=== PATIENT | female | born 2000 | race Caucasian/White ===

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

== ENCOUNTER 2023-02-02 21:56 | Emergency (ER) | payer OTHER ==
[2023-02-02 22:05] VITALS: RESP 18; TEMP 98
--- NOTE | 2023-02-02 23:08 | US ---
EXAM: US First Trimester , Transabdominal CLINICAL HISTORY: ITS.REASON US Reason: vaginal bleeding in TECHNIQUE: Real-time transabdominal obstetrical ultrasound of the maternal pelvis and a first trimester with image documentation. COMPARISON: No relevant prior studies available. FINDINGS: Gestation: Single intrauterine with a crown-rump length of 4. 62 cm yielding an estimated gestational age of 11 weeks 3 days. heart tones are identified measuring 165 bpm. Placenta/amniotic fluid: Cannot be adequately evaluated due to the early gestational age. Uterus/cervix: 4.1 x 4.1 x 2.9 cm fundal fibroid. Ovaries: Unremarkable. No mass. Free fluid: No free fluid. IMPRESSION: Single viable intrauterine gestation.
[2023-02-02 23:20] LABS: ALT 14 U/L (4-34); AST 22 U/L (14-36); African American GFR (CKD) >90 (>60 ml/min/1.73 sqM); Alkaline Phosphatase 78 U/L (38-126); Anion Gap 13 mmol/L; Blood Urea Nitrogen 6 mg/dL (7-17); Calcium 9.2 mg/dL (8.4-10.2); Carbon Dioxide 18 mmol/L (22-30); Chloride 105 mmol/L (98-107); Glucose 99 mg/dL (74-99); Non-African American GFR(CKD) >90 (>60 ml/min/1.73 sqM); Potassium 3.9 mmol/L (3.5-5.1); Sodium 136 mmol/L (137-145); Total Bilirubin 0.3 mg/dL (0.2-1.3); Total Protein 7.4 g/dL (6.3-8.2)
[2023-02-02 23:38] LABS: Amorphous Sediment,Urine Occasional /hpf; Appearance,Urine Clear (Clear); Bilirubin,Urine Negative (Negative); Blood,Urine Small (Negative); Glucose,Urine (UA) Negative (Negative); Hyaline Casts,Urine 57 /lpf (0-2); Ketones,Urine Negative (Negative); Leukocyte Esterase,Urine Negative (Negative); Mucus,Urine Few /hpf; Nitrite,Urine Negative (Negative); Protein,Urine 2+ (Negative); RBC,Urine 83 /hpf (0-5); Specific Gravity,Urine 1.028 (1.001-1.035); Squamous Epithelial Cell,Urine <1 /hpf (0-4); Urobilinogen,Urine <2.0 mg/dL (<2.0); WBC,Urine 2 /hpf (0-5)
[2023-02-02 23:40] LABS: Color,Urine Yellow
[2023-02-02 23:53] LABS: Basophils % (A) 0 %; Eosinophils # (A) 0.2 k/uL (0-0.7); Eosinophils % (A) 2 %; HCT 38.6 % (34.0-46.0); HGB 12.4 gm/dL (11.4-16.0); Lymphocytes % (A) 24 %; MCH 27.5 pg (25.0-35.0); MCHC 32.2 g/dL (31.0-37.0); MCV 85.5 fL (80.0-100.0); Mean Platelet Volume 7.9; Monocytes # (A) 0.6 k/uL (0-1.0); Monocytes % (A) 5 %; Neutrophils # (A) 8.6 k/uL (1.3-7.7); Neutrophils % (A) 69 %; Platelet Count 266 k/uL (150-450); RBC 4.52 m/uL (3.80-5.40); RDW 15.6 % (11.5-15.5); WBC 12.6 k/uL (4.0-11.0)
--- NOTE | 2023-02-02 23:55 | ED ---
General Adult HPI - General Chief complaint: Vaginal Bleeding Stated complaint: 13 weeks Preg, Bleeding Time Seen by Provider: 02/02/23 22:07 Source: patient, RN notes reviewed Mode of arrival: ambulatory Limitations: no limitations - History of Present Illness Initial comments: 22-year-old female who is presents to the emergency department with a chief complaint of vaginal bleeding. Patient reports that she is currently approximately 13 weeks . She reports that she got upset with her weight or earlier this afternoon and came home and noticed that she had bright red vaginal bleeding. She quickly got in the shower. She reports resolution of bleeding and it is only light pink when she wipes. She denies dizziness, lightheaded, low back pain, vaginal cramping. Her TEST SPECIALIST is Dr. Lal. She has appointment with her in early February. - Related Data Home Medications Medication Instructions Recorded Confirmed Pnv No.95/Ferrous Fum/Folic AC 1 each PO DAILY 07/01/20 10/02/20 [ Multivitamin Tablet] Previous Rx's Medication Instructions Recorded Ibuprofen [Motrin] 600 mg PO Q6H #40 tab 10/04/20 oxyCODONE HCL [OxyIR] 5 mg PO Q4HR PRN #15 tab 10/04/20 Allergies Allergy/AdvReac Type Severity Reaction Status Date / Time No Known Allergies Allergy Verified 02/02/23 22:05 Review of Systems ROS Statement: Those systems with pertinent positive or pertinent negative responses have been documented in the HPI. ROS Other: All systems not noted in ROS Statement are negative. Past Medical History Past Medical History: No Reported History Additional Past Medical History / Comment(s): Obstetric history: This is her first and she's had care with me since the first trimester. Blood type is O-, antibodies negative, rubella immune, RPR nonreactive, is B-, H IV nonreactive. History of Any Multi-Drug Resistant Organisms: None Reported Past Surgical History: No Surgical Hx Reported Additional Past Surgical History / Comment(s): wisdom teeth Past Anesthesia/Blood Transfusion Reactions: No Reported Reaction Past Psychological History: Anxiety, Depression Smoking Status: Former smoker Past Alcohol Use History: None Reported Past Drug Use History: Marijuana - Past Family History Mother Family Medical History: No Reported History Additional Family Medical History / Comment(s): family history of DM and heart disease Father History Unknown: Yes General Exam - General Exam Comments Initial Comments: General: Alert, in no acute distress, she is obese Head: atraumatic normocephalic. Eyes PERRL, EOMI intact, mucous membranes moist Respiratory: Lungs clear to auscultation bilaterally Cardiovascular: Heart rate regular rate and rhythm Abdominal: Soft without guarding or rebound Extremities: Normal inspection with full range of motion and normal capillary refill Neuroogic: alert and oriented 3, CN II-XII intact, able to ambulate with steady gait Skin: warm dry and intact with normal color GY: external exam is without any rashes, lesions, erythema. Vaginal canal with scant LIGHT red blood Cervical os is visualized and is closed. There is no cervical motion tenderness for abnormal adnexal tenderness. Pelvic exam p erformed with help desk associate, DAVIS Nieves present. Limitations: no limitations Course Vital Signs 02/02/23 02/03/23 22:02 00:49 Temperature 98 F Pulse Rate 96 89 Respiratory 18 18 Rate Blood Pressure 145/81 135/75 O2 Sat by Pulse 98 98 Oximetry Medical Decision Making - Medical Decision Making Was pt. sent in by a medical professional or institution (, PA, OPERATIONS SCHEDULER, urgent care, hospital, or skilled nursing...) When possible be specific @ -[No] Did you speak to anyone other than the patient for history (EMS, parent, family, police, friend...)? What history was obtained from this source @ -[No] Did you review nursing and triage notes (agree or disagree)? Why? @ -[I reviewed and agree with nursing and triage notes] Were old charts reviewed (outside hosp., previous admission, EMS record, old EKG, old radiological studies, urgent care reports/EKG's, skilled nursing records)? Report findings @ -[No old charts were reviewed] Differential Diagnosis (chest pain, altered mental status, abdominal pain women, abdominal pain men, vaginal bleeding, weakness, fever, dyspnea, syncope, heada carie, dizziness, GI bleed, back pain, seizure, CVA, palpatations, mental health, musculoskeletal)? @ -[not applicable] EKG interpreted by me (3pts min.). @ -[As above] X-rays interpreted by me (1pt min.). @ -[None done] CT interpreted by me (1pt min.). @ -[None done] U/S interpreted by me (1pt. min.). @ -Pelvic ultrasound reveals IUP What testing was considered but not performed or refused? (CT, X-rays, U/S, labs)? Why? @ -[None] What meds were considered but not given or refused? Why? @ -[None] Did you discuss the management of the patient with other professionals (professionals i.e. Dr., PA, OPERATIONS SCHEDULER, lab, RT, psych nurse, protective services social worker, supervisor [employer], teacher, college service officer, case assistant)? Give summary @ -[No] Was smoking cessation discussed for >3mins.? @ -[No] Was critical care preformed (if so, how long)? @ -[No] Were there social determinants of health that impacted care today? How? (Homelessness, low income, unemployed, alcoholism, drug addiction, transportation, low edu. Level, literacy, decrease access to med. care, longterm, rehab)? @ -[No] Was there de-escalation of care discussed even if they declined (Discuss DNR or withdrawal of care, Hospice)? DNR status @ -[No] What co-morbidities impacted this encounter? (DM, HTN, Smoking, COPD, CAD, Cancer, CVA, ARF, Chemo, Hep., AIDS, mental health diagnosis, sleep apnea, morbid obesity)? @ -[None] Was patient admitted / discharged? Hospital course, mention meds given and route, prescriptions, significant lab abnormalities, going to OR and other pertinent info. @ -Discharged. This is a pleasant 22-year-old female who presents the emergency department with vaginal bleeding and . Patient had thorough history and physical exam performed. exam reveals scant, light red blood. Cervical os is closed. No adnexal tenderness. Patient had pelvic ultrasound which revealed single IUP. Patient was provided program. Encouraged to follow up with Dr. Lal in 1-2 days. Return precautions were discussed at length. Case discussed with Dr. Jaspal LOWE who agrees with plan of care Undiagnosed new problem with uncertain prognosis? @ -[No] Drug Therapy requiring intensive monitoring for toxicity (Heparin, Nitro, Insulin, Cardizem)? @ -[No] Were any procedures done? @ -[No] Diagnosis/symptom? @ -Vaginal Bleeding in Acute, or Chronic, or Acute on Chronic? @ -Acute Uncomplicated (without systemic symptoms) or Complicated (systemic symptoms)? @ -Uncomplicated Side effects of treatment? @ -[No] Exacerbation, Progression, or Severe Exacerbation? @ -[No] Poses a threat to life or bodily function? How? (Chest pain, [place], [place], pneumonia, PE, COPD, DKA, ARF, appy, cholecystitis, CVA, Diverticulitis, Homicidal, Suicidal, threat to staff... and all critical care pts) @ -Low likelihood - Lab Data Result diagrams: 02/02/23 22:50 02/02/23 22:50 Lab Results 02/02/23 02/02/23 02/02/23 Range/Units 22:50 22:50 22:50 WBC 12.6 H (4.0-11.0) k/uL RBC 4.52 (3.80-5.40) m/uL Hgb 12.4 (11.4-16.0) gm/dL Hct 38.6 (34.0-46.0) % MCV 85.5 (80.0-100.0) fL MCH 27.5 (25.0-35.0) pg MCHC 32.2 (31.0-37.0) g/dL RDW 15.6 H (11.5-15.5) % Plt Count 266 (150-450) k/uL MPV 7.9 Neutrophils % 69 % Lymphocytes % 24 % Monocytes % 5 % Eosinophils % 2 % Basophils % 0 % Neutrophils # 8.6 H (1.3-7.7) k/uL Lymphocytes # 3.0 (1.0-4.8) k/uL Monocytes # 0.6 (0-1.0) k/uL Eosinophils # 0.2 (0-0.7) k/uL Basophils # 0.0 (0-0.2) k/uL Sodium 136 L (137-145) mmol/L Potassium 3.9 (3.5-5.1) mmol/L Chloride 105 (98-107) mmol/L Carbon Dioxide 18 L (22-30) mmol/L Anion Gap 13 mmol/L BUN 6 L (7-17) mg/dL Creatinine 0.52 (0.52-1.04) mg/dL Est GFR (CKD-EPI)AfAm >90 (>60 ml/min/1.73 sqM) Est GFR (CKD-EPI)NonAf >90 (>60 ml/min/1.73 sqM) Glucose 99 (74-99) mg/dL Calcium 9.2 (8.4-10.2) mg/dL Total Bilirubin 0.3 (0.2-1.3) mg/dL AST 22 (14-36) U/L ALT 14 (4-34) U/L Alkaline Phosphatase 78 (38-126) U/L Total Protein 7.4 (6.3-8.2) g/dL Albumin 4.0 (3.5-5.0) g/dL HCG, Quant mIU/mL Urine Color Yellow Urine Appearance Clear (Clear) Urine pH 6.0 (5.0-8.0) Ur Specific [place] 1.028 (1.001-1.035) Urine Protein 2+ H (Negative) Urine Glucose (UA) Negative (Negative) Urine Ketones Negative (Negative) Urine Blood Small H (Negative) Urine Nitrite Negative (Negative) Urine Bilirubin Negative (Negative) Urine Urobilinogen <2.0 (<2.0) mg/dL Ur Leukocyte Esterase Negative (Negative) Urine RBC 83 H (0-5) /hpf Urine WBC 2 (0-5) /hpf Ur Squamous Epith Cells <1 (0-4) /hpf Amorphous Sediment Occasional H (None) /hpf Hyaline Casts 57 H (0-2) /lpf Urine Mucus Few H (None) /hpf Blood Type Blood Type Recheck Bld Type Recheck Status Antibody Screen Spec Expiration Date 02/02/23 02/02/23 Range/Units 22:50 22:50 WBC (4.0-11.0) k/uL RBC (3.80-5.40) m/uL Hgb (11.4-16.0) gm/dL Hct (34.0-46.0) % MCV (80.0-100.0) fL MCH (25.0-35.0) pg MCHC (31.0-37.0) g/dL RDW (11.5-15.5) % Plt Count (150-450) k/uL MPV Neutrophils % % Lymphocytes % % Monocytes % % Eosinophils % % Basophils % % Neutrophils # (1.3-7.7) k/uL Lymphocytes # (1.0-4.8) k/uL Monocytes # (0-1.0) k/uL Eosinophils # (0-0.7) k/uL Basophils # (0-0.2) k/uL Sodium (137-145) mmol/L Potassium (3.5-5.1) mmol/L Chloride (98-107) mmol/L Carbon Dioxide (22-30) mmol/L Anion Gap mmol/L BUN (7-17) mg/dL Creatinine (0.52-1.04) mg/dL Est GFR (CKD-EPI)AfAm (>60 ml/min/1.73 sqM) Est GFR (CKD-EPI)NonAf (>60 ml/min/1.73 sqM) Glucose (74-99) mg/dL Calcium (8.4-10.2) mg/dL Total Bilirubin (0.2-1.3) mg/dL AST (14-36) U/L ALT (4-34) U/L Alkaline Phosphatase (38-126) U/L Total Protein (6.3-8.2) g/dL Albumin (3.5-5.0) g/dL HCG, Quant 455252.0 mIU/mL Urine Color Urine Appearance (Clear) Urine pH (5.0-8.0) Ur Specific [place] (1.001-1.035) Urine Protein (Negative) Urine Glucose (UA) (Negative) Urine Ketones (Negative) Urine Blood (Negative) Urine Nitrite (Negative) Urine Bilirubin (Negative) Urine Urobilinogen (<2.0) mg/dL Ur Leukocyte Esterase (Negative) Urine RBC (0-5) /hpf Urine WBC (0-5) /hpf Ur Squamous Epith Cells (0-4) /hpf Amorphous Sediment (None) /hpf Hyaline Casts (0-2) /lpf Urine Mucus (None) /hpf Blood Type O Negative Blood Type Recheck O Neg Bld Type Recheck Status No Antibody Screen NEGATIVE Spec Expiration Date 02/05/20232349 Disposition Clinical Impression: Vaginal bleeding Disposition: HOME SELF-CARE Condition: Stable Instructions (If sedation given, give patient instructions): Threatened Miscarriage (ED), Non-Threatening First Trimester Vaginal Bleed (ED) Additional Instructions: Please return to the nearest emergency department if symptoms worsen or persist Is patient prescribed a controlled substance at d/c from ED?: No Referrals: Nohelia Mendez MD [Primary Care Provider] - 1-2 days Magali Lal DO [Doctor of Osteopathic Medicine] - 1-2 days Time of Disposition: 00:05
[2023-02-03] MEDS ORDERED: Rhogam IMMUNE GLOBULIN 1,500 UNIT/1 ML IM ONE (00:01)
[2023-02-03 00:56] VITALS: BP 135/75; PULSE 89
== END 2023-02-03 | disposition home or self-care (01) ==
LOC: EC 21:56
DX: O20.9 Hemorrhage in early pregnancy, unspecified (principal); O99.321 Drug use complicating pregnancy, first trimester; F12.90 Cannabis use, unspecified, uncomplicated; Z3A.13 13 weeks gestation of pregnancy; Z87.891 Personal history of nicotine dependence
CPT/HCPCS: 36415; 76801; 80053; 81001; 84702; 85025; 86850; 86900; 86901; 96372; 99284; 99285

== ENCOUNTER → 2023-02-05 | Outpatient (CLI) | payer OTHER | END | disposition home or self-care (01) | LOC: RADUSWWP 15:04 | PROVIDERS: ATTEND Obstetrics & Gynecology | DX: Z53.9 Procedure and treatment not carried out, unspecified reason (principal) ==

== ENCOUNTER 2023-02-18 09:45 | Emergency (ER) | payer OTHER ==
--- NOTE | 2023-02-18 10:20 | ED ---
Female Urogenital HPI - General Chief complaint: Vaginal Bleeding Stated complaint: 14wks preg- vag bleeding Time Seen by Provider: 02/18/23 10:04 Source: patient, RN notes reviewed Mode of arrival: ambulatory Limitations: no limitations - History of Present Illness Initial comments: This is a 22-year-old female who presents to the emergency department for vaginal bleeding in . Patient is approximately 14 weeks and . Currently follows with Dr. Lal and has an appointment on 02/24. The bleeding started approximately 3 days ago, states that it has stayed fairly light, however yesterday she passed a clot, prompting her to come to the emergency department. She was here for vaginal bleeding last week as well, however she states that last week it was slightly more heavy. Denies any pain associated with this. She does have some ongoing nausea and vomiting, however this is not new for her. She did not experience any bleeding in her first , and is concerned as to why this continues to happen. She did receive RhoGAM when she was evaluated here on 02/03 for vaginal bleeding. Denies any fevers, chills, sore throat, cough, dyspnea, chest pain, palpitations, abdominal pain, diarrhea, back pain, or headaches. MD Complaint: vaginal bleeding - Related Data Home Medications Medication Instructions Recorded Confirmed Pnv No.95/Ferrous Fum/Folic AC 1 each PO DAILY 07/01/20 10/02/20 [ Multivitamin Tablet] Previous Rx's Medication Instructions Recorded RX: Ibuprofen [Motrin] 600 mg PO Q6H #40 tab 10/04/20 RX: oxyCODONE HCL [OxyIR] 5 mg PO Q4HR PRN #15 tab 10/04/20 Allergies Allergy/AdvReac Type Severity Reaction Status Date / Time No Known Allergies Allergy Verified 02/18/23 09:59 Review of Systems ROS Statement: Those systems with pertinent positive or pertinent negative responses have been documented in the HPI. ROS Other: All systems not noted in ROS Statement are negative. Past Medical History Past Medical History: No Reported History Additional Past Medical History / Comment(s): Obstetric history: This is her first and she's had care with me since the first trimester. Blood type is O-, antibodies negative, rubella immune, RPR nonreactive, is B-, HIV nonreactive. History of Any Multi-Drug Resistant Organisms: None Reported Past Surgical History: No Surgical Hx Reported Additional Past Surgical History / Comment(s): wisdom teeth Past Anesthesia/Blood Transfusion Reactions: No Reported Reaction Past Psychological History: Anxiety, Depression Smoking Status: Former smoker Past Alcohol Use History: None Reported Past Drug Use History: Marijuana - Past Family History Mother Family Medical History: No Reported History Additional Family Medical History / Comment(s): family history of DM and heart disease Father History Unknown: Yes General Exam Limitations: no limitations General appearance: alert, in no apparent distress Head exam: Present: atraumatic, normocephalic, normal inspection Respiratory exam: Present: normal lung sounds bilaterally. Absent: respiratory distress, wheezes, rales, rhonchi, stridor Cardiovascular Exam: Present: regular rate, normal rhythm, normal heart sounds. Absent: systolic murmur, diastolic murmur, rubs, gallop, clicks Neurological exam: Present: alert, oriented X3, CN II-XII intact Psychiatric exam: Present: normal affect, normal mood Skin exam: Present: warm, dry, intact, normal color. Absent: rash Course Vital Signs 02/18/23 02/18/23 02/18/23 09:59 13:23 14:07 Temperature 98.4 F 97.9 F Pulse Rate 73 69 74 Respiratory 16 18 18 Rate Blood Pressure 140/75 97/55 98/60 O2 Sat by Pulse 98 97 99 Oximetry Medical Decision Making - Medical Decision Making This is a 22-year-old female who presents to the emergency department for vaginal bleeding in . Was pt. sent in by a medical professional or institution? @ -No Did you speak to anyone other than the patient for history? @ -No Did you review nursing and triage notes? @ -Yes, and I agree, it is accurate with regards to the patient's symptoms. Were old charts reviewed? @ - US from 02/02/23 demonstrating a single live intrauterine . Differential Diagnosis? @ -Differential Vaginal Bleeding: Spontaneous , threatened , molar , ectopic , incompetent cervix, placenta previa, uterine rupture, dysfunctional uterine bleeding, hemorrhage, uterine fibroids, malignancy, coagulopathy, PID, cervicitis, adenomyosis, vaginal trauma, this is not meant to be an all- inclusive list. EKG interpreted by me (3pts min.)? @ -Not obtained X-rays interpreted by me (1pt min.)? @ -Not obtained CT interpreted by me (1pt min.)? @ -Not obtained U/S interpreted by me (1pt. min.)? @ -Not interpreted by me What testing was considered but not performed? (CT, X-rays, U/S, labs)? Why? @ -None What meds were considered but not given? Why? @ -None Did you discuss the management of the patient with other professionals? @ -Yes, Dr. Oneil, who advised that there is nothing to be done at this point given how early on in the she is. He advised strict pelvic rest and follow-up with Dr. Lal. Did you reconcile home meds? @ -No Was smoking cessation discussed for >3mins.? @ -No Was critical care preformed (if so, how long)? @ -No Were there social determinants of health that impacted care today? How? (Homelessness, low income, unemployed, alcoholism, drug addiction, transportation, low edu. Level, literacy, decrease access to med. care, fpc, rehab)? @ -No Was there de-escalation of care discussed even if they declined? (Discuss DNR or withdrawal of care, Hospice)? @ -No What co-morbidities impacted this encounter? (DM, HTN, Smoking, COPD, CAD, Cancer, CVA, Hep., AIDS, mental health diagnosis, sleep apnea, morbid obesity)? @ -, morbid obesity Was patient admitted / discharged? @ -Discharged. Lab work obtained revealing a leukocytosis and no other actionable findings. Patient is Rh-, however she received RhoGAM during her visit on 02/03 and an additional dose is not indicated at this time. Urinalysis is negative for signs of infection. OB ultrasound obtained. This revealed a suspicious finding thought to be related to a subchorionic hemorrhage. However, small placental abruption cannot be excluded. The was otherwise shown to be viable with a heart rate of 170 beats per minute. Case discussed with Dr. Oneil, PEDIATRIC OPHTHALMOLOGIST. He advised that there is nothing that can be done in this case to prevent a miscarriage if it were to occur. He also reiterated that the RhoGAM does not need to be readministered. He did advise that the patient needs to have very strict pelvic rest and follow-up with Dr. Lal as scheduled. The patient was given a work note for this week so she can remain on strict pelvic rest. She was discharged home in stable condition and will follow up with Dr. Lal as scheduled on 02/24. Undiagnosed new problem with uncertain prognosis? @ -None Drug Therapy requiring intensive monitoring for toxicity (Heparin, Nitro, Insulin, Cardizem)? @ -None Were any procedures done? @ -None Diagnosis/symptom? @ -Threatened Acute, or Chronic, or Acute on Chronic? @ -Acute Uncomplicated (without systemic symptoms) or Complicated (systemic symptoms)? @ -Uncomplicated Side effects of treatment? @ -None Exacerbation, Progression, or Severe Exacerbation] @ -Not applicable Poses a threat to life or bodily function? @ -This will depend on the level of bleeding that she incurs. Return precautions reviewed in depth, the patient is instructed to return to the emergency department with any new, worsening, or concerning symptoms. Patient verbalized understanding. This case was discussed in detail with the attending ED physician, Dr. Paul. Presentation, findings, and treatment plan discussed in detail as well. - Lab Data Result diagrams: 02/18/23 10:24 02/18/23 10:24 Lab Results 02/18/23 02/18/23 02/18/23 Range/Units 10:20 10:24 10:24 WBC 13.6 H (4.0-11.0) k/uL RBC 4.84 (3.80-5.40) m/uL Hgb 13.5 (11.4-16.0) gm/dL Hct 41.9 (34.0-46.0) % MCV 86.5 (80.0-100.0) fL MCH 27.9 (25.0-35.0) pg MCHC 32.2 (31.0-37.0) g/dL RDW 15.4 (11.5-15.5) % Plt Count 304 (150-450) k/uL MPV 8.6 Neutrophils % 82 % Lymphocytes % 12 % Monocytes % 3 % Eosinophils % 2 % Basophils % 0 % Neutrophils # 11.2 H (1.3-7.7) k/uL Lymphocytes # 1.6 (1.0-4.8) k/uL Monocytes # 0.4 (0-1.0) k/uL Eosinophils # 0.3 (0-0.7) k/uL Basophils # 0.0 (0-0.2) k/uL Sodium (137-145) mmol/L Potassium (3.5-5.1) mmol/L Chloride (98-107) mmol/L Carbon Dioxide (22-30) mmol/L Anion Gap mmol/L BUN (7-17) mg/dL Creatinine (0.52-1.04) mg/dL Est GFR (CKD-EPI)AfAm (>60 ml/min/1.73 sqM) Est GFR (CKD-EPI)NonAf (>60 ml/min/1.73 sqM) Glucose (74-99) mg/dL Calcium (8.4-10.2) mg/dL Total Bilirubin (0.2-1.3) mg/dL AST (14-36) U/L ALT (4-34) U/L Alkaline Phosphatase (38-126) U/L Total Protein (6.3-8.2) g/dL Albumin (3.5-5.0) g/dL Urine Color Yellow Urine Appearance Clear (Clear) Urine pH 6.0 (5.0-8.0) Ur Specific [place] 1.022 (1.001-1.035) Urine Protein Trace H (Negative) Urine Glucose (UA) Negative (Negative) Urine Ketones 3+ H (Negative) Urine Blood Small H (Negative) Urine Nitrite Negative (Negative) Urine Bilirubin Negative (Negative) Urine Urobilinogen <2.0 (<2.0) mg/dL Ur Leukocyte Esterase Negative (Negative) Urine WBC 1 (0-5) /hpf Ur Squamous Epith Cells 3 (0-4) /hpf Urine Mucus Few H (None) /hpf Blood Type O Negative Blood Type Recheck O Neg Bld Type Recheck Status No 02/18/23 Range/Units 10:24 WBC (4.0-11.0) k/uL RBC (3.80-5.40) m/uL Hgb (11.4-16.0) gm/dL Hct (34.0-46.0) % MCV (80.0-100.0) fL MCH (25.0-35.0) pg MCHC (31.0-37.0) g/dL RDW (11.5-15.5) % Plt Count (150-450) k/uL MPV Neutrophils % % Lymphocytes % % Monocytes % % Eosinophils % % Basophils % % Neutrophils # (1.3-7.7) k/uL Lymphocytes # (1.0-4.8) k/uL Monocytes # (0-1.0) k/uL Eosinophils # (0-0.7) k/uL Basophils # (0-0.2) k/uL Sodium 136 L (137-145) mmol/L Potassium 4.4 (3.5-5.1) mmol/L Chloride 107 (98-107) mmol/L Carbon Dioxide 19 L (22-30) mmol/L Anion Gap 10 mmol/L BUN 5 L (7-17) mg/dL Creatinine 0.52 (0.52-1.04) mg/dL Est GFR (CKD-EPI)AfAm >90 (>60 ml/min/1.73 sqM) Est GFR (CKD-EPI)NonAf >90 (>60 ml/min/1.73 sqM) Glucose 92 (74-99) mg/dL Calcium 9.5 (8.4-10.2) mg/dL Total Bilirubin 0.5 (0.2-1.3) mg/dL AST 32 (14-36) U/L ALT 16 (4-34) U/L Alkaline Phosphatase 96 (38-126) U/L Total Protein 7.6 (6.3-8.2) g/dL Albumin 3.9 (3.5-5.0) g/dL Urine Color Urine Appearance (Clear) Urine pH (5.0-8.0) Ur Specific [place] (1.001-1.035) Urine Protein (Negative) Urine Glucose (UA) (Negative) Urine Ketones (Negative) Urine Blood (Negative) Urine Nitrite (Negative) Urine Bilirubin (Negative) Urine Urobilinogen (<2.0) mg/dL Ur Leukocyte Esterase (Negative) Urine WBC (0-5) /hpf Ur Squamous Epith Cells (0-4) /hpf Urine Mucus (None) /hpf Blood Type Blood Type Recheck Bld Type Recheck Status - Radiology Data Radiology results: report reviewed, image reviewed Disposition Clinical Impression: Threatened Disposition: HOME SELF-CARE Instructions (If sedation given, give patient instructions): Threatened Miscarriage (ED), Subchorionic Hemorrhage (ED) Additional Instructions: Return to the emergency department with any new, worsening, or concerning symptoms. Make sure that you remain on very strict pelvic rest. Follow-up with Dr. Lal as scheduled. Is patient prescribed a controlled substance at d/c from ED?: No Referrals: Nohelia Mendez MD [Primary Care Provider] - 1-2 days
[2023-02-18 10:48] LABS: Basophils % (A) 0 %; Eosinophils # (A) 0.3 k/uL (0-0.7); Eosinophils % (A) 2 %; HCT 41.9 % (34.0-46.0); HGB 13.5 gm/dL (11.4-16.0); Lymphocytes # (A) 1.6 k/uL (1.0-4.8); Lymphocytes % (A) 12 %; MCH 27.9 pg (25.0-35.0); MCHC 32.2 g/dL (31.0-37.0); MCV 86.5 fL (80.0-100.0); Mean Platelet Volume 8.6; Monocytes # (A) 0.4 k/uL (0-1.0); Monocytes % (A) 3 %; Neutrophils # (A) 11.2 k/uL (1.3-7.7); Neutrophils % (A) 82 %; Platelet Count 304 k/uL (150-450); RBC 4.84 m/uL (3.80-5.40); RDW 15.4 % (11.5-15.5); WBC 13.6 k/uL (4.0-11.0)
[2023-02-18 11:05] LABS: ALT 16 U/L (4-34); AST 32 U/L (14-36); African American GFR (CKD) >90 (>60 ml/min/1.73 sqM); Albumin 3.9 g/dL (3.5-5.0); Alkaline Phosphatase 96 U/L (38-126); Anion Gap 10 mmol/L; Blood Urea Nitrogen 5 mg/dL (7-17); Calcium 9.5 mg/dL (8.4-10.2); Carbon Dioxide 19 mmol/L (22-30); Chloride 107 mmol/L (98-107); Glucose 92 mg/dL (74-99); Non-African American GFR(CKD) >90 (>60 ml/min/1.73 sqM); Potassium 4.4 mmol/L (3.5-5.1); Sodium 136 mmol/L (137-145); Total Bilirubin 0.5 mg/dL (0.2-1.3); Total Protein 7.6 g/dL (6.3-8.2)
--- NOTE | 2023-02-18 11:47 | US ---
EXAMINATION TYPE: Transabdominal DATE OF EXAM: 02/18/2023 11:14 AM COMPARISON: US 02/02/2023 CLINICAL INDICATION: Female, 22 years old with history of Vaginal bleeding in ; Vaginal blee ding x 3 days. Hx 1 C section. . EXAM PERFORMED: Transvaginal (TV) and Transabdominal (TA) EXAM MEASUREMENTS: GESTATIONAL AGE / DATING Physician Established: (14 weeks/1 day) EDC: 08/18/2023 Dates by LMP: (14 weeks/4 days) EDC: 08/15/2023 Dates by First Scan: (13 weeks/6 days) EDC: 08/20/2023 Dates by Current Scan for: (13 weeks/4 day) EDC: 08/22/2023 MATERNAL ANATOMY Uterus: 16.5 x 8.2 x 8.4 cm. Right Ovary: 2.6 x 2.2 x 1.9 cm. Left Ovary: Obscured Post CDS / Adnexa: Appear wnl Presence of free fluid: Not seen. Presence of corpus luteal cyst: Not seen. Presence of subchorionic bleed: Possibly. Hypoechoic area seen measurin.1 x 2.3 x 0.5 cm. GESTATION / SURVEY CRL: 7.41 cm (13 weeks/4 days) MSD: Imaged, not measured, appears slightly low within uterus Yolk Sac (normal less than 6mm): Not seen Heart Rate: 170 bpm, 165 bpm second measurement Rhythm: Normal IUP: Viable IUP Nuchal Translucency 10-14wks (normal less than 3mm): not well seen Date of LMP: 11/08/2022 Beta HcG (if available): Not available Forming placental tissue appears heterogeneous with lobulated contour. *Questionable bleed beer brewer ior to the placenta versus subchorionic bleed as mentioned above, hypoechoic area measures: 2.1 x 2.3 x 0.5 cm. Gestational sac is mildly irregular. IMPRESSION: 1. The placenta is heterogeneous and there is a finding suspicious for a 2.3 x 2.1 cm x 0.5 hemorrhag e posterior to the placenta or subchorionic hemorrhage. Can't exclude a small placental abruption. Re port discussed with ER physician. 2. Viable with heart rate of 170 bpm and estimated age 13 weeks 4 days.
[2023-02-18 12:51] LABS: Appearance,Urine Clear (Clear); Bilirubin,Urine Negative (Negative); Blood,Urine Small (Negative); Color,Urine Yellow; Glucose,Urine (UA) Negative (Negative); Ketones,Urine 3+ (Negative); Leukocyte Esterase,Urine Negative (Negative); Mucus,Urine Few /hpf; Nitrite,Urine Negative (Negative); Protein,Urine Trace (Negative); Specific Gravity,Urine 1.022 (1.001-1.035); Squamous Epithelial Cell,Urine 3 /hpf (0-4); Urobilinogen,Urine <2.0 mg/dL (<2.0); WBC,Urine 1 /hpf (0-5)
[2023-02-18] MEDS ORDERED: ONDANSETRON 4 MG/2 ML VIAL IVP STA (13:15)
[2023-02-18 13:26] VITALS: RESP 18; TEMP 97.9
[2023-02-18 14:08] VITALS: BP 98/60; PULSE 74
== END 2023-02-18 14:08 | disposition home or self-care (01) ==
LOC: EC 09:45
DX: O20.0 Threatened abortion (principal); O99.321 Drug use complicating pregnancy, first trimester; F12.90 Cannabis use, unspecified, uncomplicated; Z3A.13 13 weeks gestation of pregnancy; Z87.891 Personal history of nicotine dependence
CPT/HCPCS: 99284; 96374; 36415; 86900; 86901; 80053; 84443; 85025; 81001; 84702; 76801; 76817; J2405

== ENCOUNTER 2023-07-21 19:38 | Outpatient (CLI) | payer OTHER ==
[2023-07-21] MEDS: ACETAMINOPHEN TAB 325 MG TAB PO STA (20:22)
[2023-07-21 21:04] VITALS: BP 135/91; PULSE 84; RESP 16; TEMP 97
--- NOTE | 2023-07-22 06:30 | P.MSEPDOC ---
Presenting Problems - Arrival Data Date of Arrival on Unit: 07/21/23 Time of Arrival on Unit: 19:38 Mode of Transport: Ambulatory - Complaint OB-Reason for Admission/Chief Complaint: Pain Comment: Patient arrived to triage states that she is experiencing back pain that started last night. Back pain is lower right back pain 8/10 that get worse with walking and standing. Patient denies any complications with , denies leaking of vaginal fluid and bleeding. Patient states that she has not taking anything for the pain at all. Patient states that she had a a c section previously but has spoke to Dr. Lal about . Medical History - Information : 2 Para: 1 Term: 1 : 0 Abortions: Spontaneous or Elective: 0 Number of Living Children: 1 - Gestational Age Gestational Age by VICK (wks/days): 36 Weeks and 3 Days - History Comment: Patient denies Review of Systems - Review of Systems Constitutional: No problems Breast: No problems ENT: No problems Cardiovascular: No problems Respiratory: No problems Gastrointestinal: No problems Genitourinary: No problems Musculoskeletal: No problems Neurological: No problems Skin: No problems Vital Signs - Temperature Temperature: 97.0 F Temperature Source: Temporal Artery Scan - Pulse Pulse Oximetery Pulse Rate: 84 Pulse Assessment Method: Automatic Cuff - Respirations Respiratory Rate: 16 Oxygen Delivery Method: Room Air O2 Sat by Pulse Oximetry: 98 - Blood Pressure Right Arm Blood Pressure: 135/91 Blood Pressure Mean: 105 Blood Pressure Source: Automatic Cuff Medical Screen Scoring - Cervical Exam Dilation (cm): 0 - Assessment - Baby A Baseline FHR: 130 Heart Rate - NICHD Category: Category I (Normal) NST: Reactive Physician Notification - Physician Notified Physician Notified Date: 07/21/23 Physician Notified Time: 20:05 Physician: Adrian Oneil New Order Received: Yes - Notification Comment Comment: Patient arrived to triage states that she is experiencing back pain that started last night. Back pain is lower right back pain 8/10 that get worse with walking and standing. Patient denies any complications with , denies leaking of vaginal fluid and bleeding. Patient states that she has not taking anything for the pain at all. Patient states that she had a a c section previously but has spoke to Dr. Lal about . RN spoke with Dr. Oneil via telephone, Dr. Oneil aware of patient c/o history, vitals, cervical check, pain and rating. CAT 1 FHR and no contractions with soft abdomen present. Dr. Oneil ordered discharge on patient. Maternal Triage Index - Urgent/Priority 2 Urgent Priority 2: Yes Provider Notified: Adrian Oneil Provider Notified Time: 20:05 Criteria Met for Priority 2: Patient arrived to triage states that she is experiencing back pain that started last night. Back pain is lower right back pain 8/10 that get worse with walking and standing. Patient denies any complications with , denies leaking of vaginal fluid and bleeding. Patient states that she has not taking anything for the pain at all. Patient states that she had a a c section previously but has spoke to Dr. Lal about . Disposition - Disposition OB Disposition: Admit Discharge Date: 07/21/23 Discharge Time: 20:15 I agree with the RN Medical Screening Exam: Yes Case reviewed; plan agreed upon as documented in EMR&OBIX.: Yes Diagnosis: FALSE LABOR BEFORE 37 COMPLETED WEEKS OF GEST, THIRD TRI
== END 2023-07-21 20:15 | disposition home or self-care (01) ==
LOC: FBPOP 19:38
PROVIDERS: ATTEND Obstetrics & Gynecology
DX: O47.03 False labor before 37 completed weeks of gestation, third trimester (principal); O26.893 Other specified pregnancy related conditions, third trimester; M54.50 Low back pain, unspecified; Z3A.36 36 weeks gestation of pregnancy
CPT/HCPCS: 59025; G0463; 99213

== ENCOUNTER 2023-08-19 22:53 | Emergency (ER) | payer OTHER ==
[2023-08-19 23:30] VITALS: BP 151/92; PULSE 72; RESP 16; TEMP 98.5
--- NOTE | 2023-08-19 23:31 | ED ---
General Adult HPI - General Chief complaint: ENT Stated complaint: Unable to hear in right ear Time Seen by Provider: 08/19/23 23:29 Source: patient, RN notes reviewed Mode of arrival: ambulatory Limitations: no limitations - History of Present Illness Initial comments: 23-year-old female presents to the emergency department for evaluation of right ear muffled hearing. She states that this worsened a hour ago but she has been experiencing this for the past couple of weeks. She denies recent illness, fever, congestion. She does report that she had some discomfort to her right ear recently. She denies any ringing in the ears, dizziness. - Related Data Home Medications Medication Instructions Recorded Confirmed Vit No.179/Iron/Folic 1 each PO DAILY 07/21/23 08/13/23 [ Tablet] Previous Rx's Medication Instructions Recorded Ibuprofen [Motrin] 600 mg PO Q6H #60 tab 08/15/23 oxyCODONE HCL [OxyIR] 5 mg PO Q4HR PRN #12 tab 08/15/23 Allergies Allergy/AdvReac Type Severity Reaction Status Date / Time No Known Allergies Allergy Verified 08/19/23 23:22 Review of Systems ROS Statement: Those systems with pertinent positive or pertinent negative responses have been documented in the HPI. ROS Other: All systems not noted in ROS Statement are negative. Past Medical History Past Medical History: No Reported History Additional Past Medical History / Comment(s): Obstetric history: First was a primary low transverse . This is her second and she's had care with me since the first trimester. Blood type is O-, antibodies negative, rubella immune, RPR nonreactive, is B-, HIV nonreactive. History of Any Multi-Drug Resistant Organisms: None Reported Past Surgical History: Section Additional Past Surgical History / Comment(s): wisdom teeth Past Anesthesia/Blood Transfusion Reactions: No Reported Reaction Past Psychological History: Anxiety, Depression Smoking Status: Former smoker Past Alcohol Use History: None Reported Past Drug Use History: Marijuana - Past Family History Mother Family Medical History: No Reported History Additional Family Medical History / Comment(s): family history of DM and heart disease Father History Unknown: Yes General Exam Limitations: no limitations General appearance: alert, in no apparent distress Head exam: Present: atraumatic, normocephalic, normal inspection Eye exam: Present: normal appearance, PERRL, EOMI. Absent: scleral icterus, conjunctival injection, periorbital swelling ENT exam: Present: TM's normal bilaterally (Visualized post irrigation and intact, unremarkable). Absent: normal external ear exam (cerumen impaction) Respiratory exam: Present: normal lung sounds bilaterally. Absent: respiratory distress, wheezes, rales, rhonchi, stridor Cardiovascular Exam: Present: regular rate, normal rhythm, normal heart sounds. Absent: systolic murmur, diastolic murmur, rubs, gallop, clicks Neurological exam: Present: alert, oriented X3 Psychiatric exam: Present: normal affect, normal mood Skin exam: Present: warm, dry, intact, normal color. Absent: rash Course Vital Signs 08/19/23 23:19 Temperature 98.5 F Pulse Rate 72 Respiratory 16 Rate Blood Pressure 151/92 O2 Sat by Pulse 98 Oximetry Medical Decision Making - Medical Decision Making Was pt. sent in by a medical professional or institution (, PA, SCREEN PRINTING PASTER, urgent care, hospital, or correction...) When possible be specific @ -No Did you speak to anyone other than the patient for history (EMS, parent, family, police, friend...)? What history was obtained from this source @ -No Did you review nursing and triage notes (agree or disagree)? Why? @ -I reviewed and agree with nursing and triage notes Were old charts reviewed (outside hosp., previous admission, EMS record, old EKG, old radiological studies, urgent care reports/EKG's, correction records)? Report findings @ -No old charts were reviewed Differential Diagnosis (chest pain, altered mental status, abdominal pain women, abdominal pain men, vaginal bleeding, weakness, fever, dyspnea, syncope, headache, dizziness, GI bleed, back pain, seizure, CVA, palpatations, mental health, musculoskeletal)? @ -Cerumen impaction, sensorineural hearing loss, Mnire's disease, otitis media, otitis externa, this list is not all inclusive EKG interpreted by me (3pts min.). @ -None X-rays interpreted by me (1pt min.). @ -None done CT interpreted by me (1pt min.). @ -None done U/S interpreted by me (1pt. min.). @ -None done What testing was considered but not performed or refused? (CT, X-rays, U/S, labs)? Why? @ -None What meds were considered but not given or refused? Why? @ -None Did you discuss the management of the patient with other professionals (professionals i.e. , PA, SCREEN PRINTING PASTER, lab, RT, psych nurse, social contact worker, humidifier attendant, teacher, transportation officer, onsite case manager)? Give summary @ -No Was smoking cessation discussed for >3mins.? @ -No Was critical care preformed (if so, how long)? @ -No Were there social determinants of health that impacted care today? How? (Homelessness, low income, unemployed, alcoholism, drug addiction, transportation, low edu. Level, literacy, decrease access to med. care, half-way, rehab)? @ -No Was there de-escalation of care discussed even if they declined (Discuss DNR or withdrawal of care, Hospice)? DNR status @ -No What co-morbidities impacted this encounter? (DM, HTN, Smoking, COPD, CAD, Cancer, CVA, ARF, Chemo, Hep., AIDS, mental health diagnosis, sleep apnea, morbid obesity)? @ -None Was patient admitted / discharged? Hospital course, mention meds given and route, prescriptions, significant lab abnormalities, going to OR and other pertinent info. @ -Discharged. Patient presented to the emergency department for evaluation of muffled hearing in her right ear. On examination, patient has cerumen impaction to the right ear. Ear was irrigated with removal of cerumen. Reexamination of the ear shows a normal tympanic membrane, clear ear canal. She notes that the hearing in her right ear has improved. Discussed utilizing peroxide weekly at home. Patient understanding agreeable with plan. Patient stable at time of discharge. Case discussed with Dr. Galvan. Undiagnosed new problem with uncertain prognosis? @ -No Drug Therapy requiring intensive monitoring for toxicity (Heparin, Nitro, Insulin, Cardizem)? @ -No Were any procedures done? @ -No Diagnosis/symptom? @ -Cerumen impaction Acute, or Chronic, or Acute on Chronic? @ -Acute Uncomplicated (without systemic symptoms) or Complicated (systemic symptoms)? @ -Uncomplicated Side effects of treatment? @ -No Exacerbation, Progression, or Severe Exacerbation? @ -No Poses a threat to life or bodily function? How? (Chest pain, [place], MA, pneumonia, PE, COPD, DKA, ARF, appy, cholecystitis, CVA, Diverticulitis, Homicidal, Suic idal, threat to staff... and all critical care pts) @ -No Disposition Clinical Impression: Impacted cerumen Disposition: HOME SELF-CARE Condition: Stable Instructions (If sedation given, give patient instructions): Earache (ED) Additional Instructions: Please follow-up with your primary care provider. Return to the emergency department for new or worsening symptoms. Is patient prescribed a controlled substance at d/c from ED?: No Referrals: None,Stated [Primary Care Provider] - 1-2 days
== END 2023-08-20 00:35 | disposition home or self-care (01) ==
LOC: EC 22:53
DX: H61.21 Impacted cerumen, right ear (principal); F12.90 Cannabis use, unspecified, uncomplicated; Z87.891 Personal history of nicotine dependence
CPT/HCPCS: 99282

== ENCOUNTER 2024-06-01 21:29 | Emergency (ER) | payer OTHER ==
[2024-06-01 21:49] VITALS: RESP 18; TEMP 98.2
--- NOTE | 2024-06-01 22:25 | XR ---
EXAMINATION TYPE: XR ankle complete LT DATE OF EXAM: 06/01/2024 10:02 PM COMPARISON: None. CLINICAL INDICATION: Female, 24 years old with history of fall,pain, pain TECHNIQUE: Frontal, lateral and oblique images of the left ankle are obtained. FINDINGS: There is no acute fracture/dislocation evident in the left ankle. The ankle mortise appea rs within normal limits. Mild to moderate focal soft tissue swelling laterally and anteriorly is seen . IMPRESSION: There is no acute fracture or dislocation in the left ankle. [facility], , 06/01/2024 10:23 PM
--- NOTE | 2024-06-02 00:01 | ED ---
General Adult HPI - General Chief complaint: Extremity Injury, Lower Stated complaint: Fall- left ankle injury, 9wks preg Time Seen by Provider: 06/01/24 21:50 Source: patient Mode of arrival: ambulatory Limitations: no limitations - History of Present Illness Initial comments: 24-year-old female presents emergency department reporting a fall. Patient s tates that she fell down 1 step and twisted her ankle. She is complaining of left ankle pain. She does not know if she hit her abdomen. She is 9 weeks . She admits to mild abdominal cramping to me however this was not first mentioned when she was triaged. She states she cannot put any weight on the left leg. She did not take anything for pain. She denies any vaginal bleeding. No head injury. Denies neck or back pain. No other alleviating, precipitating or modifying factors - Related Data Home Medications Medication Instructions Recorded Confirmed Vit No.179/Iron/Folic 1 each PO DAILY 07/21/23 08/13/23 [ Tablet] Previous Rx's Medication Instructions Recorded Ibuprofen [Motrin] 600 mg PO Q6H #60 tab 08/15/23 oxyCODONE HCL [OxyIR] 5 mg PO Q4HR PRN #12 tab 08/15/23 Allergies Allergy/AdvReac Type Severity Reaction Status Date / Time No Known Allergies Allergy Verified 06/01/24 21:46 Review of Systems ROS Statement: Those systems with pertinent positive or pertinent negative responses have been documented in the HPI. ROS Other: All systems not noted in ROS Statement are negative. Past Medical History Past Medical History: No Reported History Additional Past Medical History / Comment(s): Obstetric history: First was a primary low transverse . This is her second and she's had care with me since the first trimester. Blood type is O-, antibodies negative, rubella immune, RPR nonreactive, is B-, HIV nonreactive. History of Any Multi-Drug Resistant Organisms: None Reported Past Surgical History: Section Additional Past Surgical History / Comment(s): wisdom teeth Past Anesthesia/Blood Transfusion Reactions: No Reported Reaction Past Psychological History: Anxiety, Depression Smoking Status: Former smoker Past Alcohol Use History: None Reported Past Drug Use History: None Reported - Past Family History Mother Family Medical History: No Reported History Additional Family Medical History / Comment(s): family history of DM and heart disease Father History Unknown: Yes General Exam Limitations: no limitations General appearance: alert, in no apparent distress Head exam: Present: atraumatic, normocephalic, normal inspection Eye exam: Present: normal appearance, PERRL, EOMI. Absent: scleral icterus, conjunctival injection, periorbital swelling ENT exam: Present: normal exam, mucous membranes moist Neck exam: Present: normal inspection. Absent: tenderness, meningismus, lymphadenopathy Respiratory exam: Present: normal lung sounds bilaterally. Absent: respiratory distress, wheezes, rales, rhonchi, stridor Cardiovascular Exam: Present: regular rate, normal rhythm, normal heart sounds. Absent: systolic murmur, diastolic murmur, rubs, gallop, clicks GI/Abdominal exam: Present: soft, normal bowel sounds. Absent: distended, tenderness, guarding, rebound, rigid Extremities exam: Present: normal inspection, tenderness (And swelling to the left ankle), normal capillary refill. Absent: pedal edema, joint swelling, calf tenderness Back exam: Present: normal inspection Neurological exam: Present: alert, oriented X3, CN II-XII intact Psychiatric exam: Present: normal affect, normal mood Skin exam: Present: warm, dry, intact, normal color. Absent: rash Course Vital Signs 06/01/24 06/02/24 21:46 00:06 Temperature 98.2 F Pulse Rate 101 H 70 Respiratory 18 18 Rate Blood Pressure 145/65 114/69 O2 Sat by Pulse 98 97 Oximetry Medical Decision Making - Medical Decision Making Was pt. sent in by a medical professional or institution (, PA, HADOOP JAVA DEVELOPER, urgent care, hospital, or longterm...) When possible be specific @ -No Did you speak to anyone other than the patient for history (EMS, parent, family, police, friend...)? What history was obtained from this source @ -No Did you review nursing and triage notes (agree or disagree)? Why? @ -I reviewed and agree with nursing and triage notes Were old charts reviewed (outside hosp., previous admission, EMS record, old EKG, old radiological studies, urgent care reports/EKG's, longterm records)? Report findings @ -No old charts were reviewed Differential Diagnosis (chest pain, altered mental status, abdominal pain women, abdominal pain men, vaginal bleeding, weakness, fever, dyspnea, syncope, headache, dizziness, GI bleed, back pain, seizure, CVA, palpatations, mental health, musculoskeletal)? @ -Differential Musculoskeletal Muscular strain, contusion, ligament sprain, fracture, arthritis, septic arthritis, bursitis, cellulitis, muscle spasm, nerve compression, DVT, arterial occlusion, herpes zoster, electrolyte abnormality, tumor.... This is not meant to be in all inclusive list EKG interpreted by me (3pts min.). @ -Not done X-rays interpreted by me (1pt min.). @ -Yes which demonstrates no acute process CT interpreted by me (1pt min.). @ -None done U/S interpreted by me (1pt. min.). @ -Yes which demonstrates intrauterine but no heart tone at this time What testing was considered but not performed or refused? (CT, X-rays, U/S, labs)? Why? @ -None What meds were considered but not given or refused? Why? @ -None Did you discuss the management of the patient with other professionals (professionals i.e. , PA, HADOOP JAVA DEVELOPER, lab, RT, psych nurse, professor of social work, electrician master, teacher, global chief experience officer, case management specialist)? Give summary @ -No Was smoking cessation discussed for >3mins.? @ -No Was critical care preformed (if so, how long)? @ -No Were there social determinants of health that impacted care today? How? (Homelessness, low income, unemployed, alcoholism, drug addiction, transportation, low edu. Level, literacy, decrease access to med. care, senior care, rehab)? @ -No Was there de-escalation of care discussed even if they declined (Discuss DNR or withdrawal of care, Hospice)? DNR status @ -No What co-morbidities impacted this encounter? (DM, HTN, Smoking, COPD, CAD, Cancer, CVA, ARF, Chemo, Hep., AIDS, mental health diagnosis, sleep apnea, morbid obesity)? @ -None Was patient admitted / discharged? Hospital course, mention meds given and route, prescriptions, significant lab abnormalities, going to OR and other pertinent info. @ -Upon arrival patient seen and evaluated in triage. Thorough history and physical exam was performed. X-ray was performed which demonstrates no acute process. I did attempt to discharge patient however she does mention that she may have hit her abdomen and wants an ultrasound. This was ordered and completed. Patient then notified triage that she wanted a refill for her results. I was unable to speak to the patient in regards to her results however my colleague Dr. Galvan was able to let her know that there was an intrauterine . Patient must have repeat ultrasound done in 1 week due to inability to identify heart tones. Return to the emergency department for any new or worsening symptoms. Patient left before I was comfortable discharging the patient Undiagnosed new problem with uncertain prognosis? @ -No Drug Therapy requiring intensive monitoring for toxicity (Heparin, Nitro, Insulin, Cardizem)? @ -No Were any procedures done? @ -No Diagnosis/symptom? @ -Acute fall, acute left ankle pain, possible abdominal trauma, first trimester Acute, or Chronic, or Acute on Chronic? @ -Acute Uncomplicated (without systemic symptoms) or Complicated (systemic symptoms)? @ -Complicated Side effects of treatment? @ -No Exacerbation, Progression, or Severe Exacerbation? @ -No Poses a threat to life or bodily function? How? (Chest pain, [place], [place], pneumonia, PE, COPD, DKA, ARF, appy, cholecystitis, CVA, Diverticulitis, Homicidal, Suicidal, threat to staff... and all critical care pts) @ -No Disposition Clinical Impression: Left ankle pain, First trimester , Fall (on) (from) other stairs and steps, initial encounter Disposition: HOME SELF-CARE Condition: Stable Instructions (If sedation given, give patient instructions): Ankle Sprain (ED) Additional Instructions: Recommend pelvic rest - no intercourse or anything in the vagina until follow up with [facility]. Must have repeat US in one week Return to the ER at any time for re-evaluation of persistent or worsening symptoms Is patient prescribed a controlled substance at d/c from ED?: No Referrals: None,Stated [Primary Care Provider] - 1-2 days
[2024-06-02 00:08] VITALS: BP 114/69; PULSE 70
--- NOTE | 2024-06-02 04:02 | US ---
EXAM: US , Transvaginal CLINICAL HISTORY: ITS.REASON US Reason: trauma, abd pain TECHNIQUE: Real-time transvaginal obstetrical ultrasound of the maternal pelvis and a first trimester with image documentation. Transvaginal imaging was used for better evaluation of the fetus and adnexa. COMPARISON: No relevant prior studies available. FINDINGS: Gestation: Single gestational sac is seen within the endometrial cavity. Single pole is visualized with crown-rump length measuring 1.9 cm consistent with estimated gestational age of 8 weeks 3 days. Yolk sac is visualized. No cardiac motion is visualized. Placenta/amniotic fluid: Cannot be adequately evaluated due to the early gestational age. Uterus/cervix: Unremarkable. No myometrial mass. Ovaries: The right ovary measures 1.7 x 2.7 x 1.4 cm. The left ovary measures 1.3 x 1.8 x 1.4 cm. No mass. Free fluid: Trace free fluid is seen adjacent to the right ovary. IMPRESSION: Single intrauterine gestation with no cardiac motion visualized.
== END 2024-06-02 00:12 | disposition home or self-care (01) ==
LOC: EC 21:29
DX: O9A.211 Injury, poisoning and certain other consequences of external causes complicating pregnancy, first trimester (principal); M25.572 Pain in left ankle and joints of left foot; Z87.891 Personal history of nicotine dependence; Z3A.09 9 weeks gestation of pregnancy; W10.8XXA Fall (on) (from) other stairs and steps, initial encounter
CPT/HCPCS: 76801; 76817; 99284

== ENCOUNTER 2024-06-05 22:32 | Emergency (ER) | payer OTHER ==
[2024-06-05 22:39] VITALS: TEMP 97.9
--- NOTE | 2024-06-05 23:04 | ED ---
Female Urogenital HPI - General Chief complaint: Vaginal Bleeding Stated complaint: Vaginal Bleeding - 10 wks Time Seen by Provider: 06/05/24 23:02 Source: patient, RN notes reviewed Mode of arrival: wheelchair Limitations: no limitations - History of Present Illness Initial comments: 24-year-old female at approximately 10 weeks gestation presenting for vaginal bleeding x 2 days. States the bleeding began as light spotting, however today reports gushing of blood with large clots.. Patient states she believes she passed the fetus. Also admits intermittent lower abdominal cramping that feels like contractions. Patient states she was seen for a fall 3 days ago and was diagnosed with a ankle sprain. At this time, she reports ultrasound was performed and was told everything was normal. - Related Data Home Medications Medication Instructions Recorded Confirmed Vit No.179/Iron/Folic 1 each PO DAILY 07/21/23 08/13/23 [ Tablet] Previous Rx's Medication Instructions Recorded Ibuprofen [Motrin] 600 mg PO Q6H #60 tab 08/15/23 oxyCODONE HCL [OxyIR] 5 mg PO Q4HR PRN #12 tab 08/15/23 Allergies Allergy/AdvReac Type Severity Reaction Status Date / Time No Known Allergies Allergy Verified 06/01/24 21:46 Review of Systems ROS Statement: Those systems with pertinent positive or pertinent negative responses have been documented in the HPI. ROS Other: All systems not noted in ROS Statement are negative. Past Medical History Past Medical History: No Reported History Additional Past Medical History / Comment(s): Obstetric history: First was a primary low transverse . This is her second and she's had care with me since the first trimester. Blood type is O-, antibodies negative, rubella immune, RPR nonreactive, is B-, HIV nonreactive. History of Any Multi-Drug Resistant Organisms: None Reported Past Surgical History: Section Additional Past Surgical History / Comment(s): wisdom teeth Past Anesthesia/Blood Transfusion Reactions: No Reported Reaction Past Psychological History: Anxiety, Depression Smoking Status: Former smoker Past Alcohol Use History: None Reported Past Drug Use History: None Reported - Past Family History Mother Family Medical History: No Reported History Additional Family Medical History / Comment(s): family history of DM and heart disease Father History Unknown: Yes General Exam Limitations: no limitations General appearance: alert, in no apparent distress Head exam: Present: atraumatic, normocephalic, normal inspection Respiratory exam: Present: normal lung sounds bilaterally. Absent: respiratory distress, wheezes, rales, rhonchi, stridor Cardiovascular Exam: Present: regular rate, normal rhythm, normal heart sounds. Absent: systolic murmur, diastolic murmur, rubs, gallop, clicks GI/Abdominal exam: Present: soft, normal bowel sounds. Absent: distended, tenderness, guarding, rebound, rigid Neurological exam: Present: alert, oriented X3 Psychiatric exam: Present: normal affect, normal mood Skin exam: Present: warm, dry, intact, normal color. Absent: rash Course Vital Signs 06/05/24 22:34 Temperature 97.9 F Pulse Rate 106 H Respiratory 22 Rate Blood Pressure 143/83 O2 Sat by Pulse 98 Oximetry Medical Decision Making - Medical Decision Making Was pt. sent in by a medical professional or institution (, PA, PETROLOGIST, urgent care, hospital, or [place] health [place] facility...) When possible be specific @ -No Did you speak to anyone other than the patient for history (EMS, parent, family, police, friend...)? What history was obtained from this source @ -No Did you review nursing and triage notes (agree or disagree)? Why? @ -I reviewed and agree with nursing and triage notes Were old charts reviewed (outside hosp., previous admission, EMS record, old EKG, old radiological studies, urgent care reports/EKG's, [place] health care facility records)? Report findings @ -No old charts were reviewed Differential Diagnosis (chest pain, altered mental status, abdominal pain women, abdominal pain men, vaginal bleeding, weakness, fever, dyspnea, syncope, headache, dizziness, GI bleed, back pain, seizure, CVA, palpatations, mental health, musculoskeletal)? @ -Differential Vaginal Bleeding: Spontaneous , threatened , molar , ectopic , bloody show, incompetent cervix, abruptioplacenta, placenta previa, uterine rupture, dysfunctional uterine bleeding, hemorrhage, uterine fibroids, this is not meant to be an all-inclusive list. EKG interpreted by me (3pts min.). @ -None X-rays interpreted by me (1pt min.). @ -None done CT interpreted by me (1pt min.). @ -None done U/S interpreted by me (1pt. min.). @ -Ultrasound pelvis pending at time of discharge What testing was considered but not performed or refused? (CT, X-rays, U/S, labs)? Why? @ -Patient unable to leave urine sample What meds were considered but not given or refused? Why? @ -None Did you discuss the management of the patient with other professionals (professionals i.e. , PA, PETROLOGIST, lab, RT, psych nurse, child protective services social worker, ceramics engineer, teacher, banking services officer, rn case manager hospice)? Give summary @ -No Was smoking cessation discussed for >3mins.? @ -No Was critical care preformed (if so, how long)? @ -No Were there social determinants of health that impacted care today? How? (Homelessness, low income, unemployed, alcoholism, drug addiction, transportation, low edu. Level, literacy, decrease access to med. care, [facility], rehab)? @ -No Was there de-escalation of care discussed even if they declined (Discuss DNR or withdrawal of care, Hospice)? DNR status @ -No What co-morbidities impacted this encounter? (DM, HTN, Smoking, COPD, CAD, C ancer, CVA, ARF, Chemo, Hep., AIDS, mental health diagnosis, sleep apnea, morbid obesity)? @ -None Was patient admitted / discharged? Hospital course, mention meds given and route, prescriptions, significant lab abnormalities, going to OR and other pertinent info. @ -Discharge. This is a 24-year-old female at 10 weeks gestation presenting for vaginal bleeding x 2 days. Ultrasound 4 days ago reveals IUP. Abdomen soft and nontender. hCG level 24,932. Mild leukocytosis of 13. Hemoglobin stable at 12.1. Patient is blood type O-. Patient unable to leave urine sample. RhoGAM was given. Diagnosis of threatened discussed. Ultrasound pelvis pending. Patient states she would like to be discharged, I believe this is reasonable as there is documented IUP 4 days ago. Advised to follow-up in 2 days for repeat beta hCG levels in 1 week for repeat ultrasound. Appropriate return precautions and follow-up care discussed. Case was discussed with my ED attending Dr. Holland Undiagnosed new problem with uncertain prognosis? @ -No Drug Therapy requiring intensive monitoring for toxicity (Heparin, Nitro, Insulin, Cardizem)? @ -No Were any procedures done? @ -No Diagnosis/symptom? @ -Threatened Acute, or Chronic, or Acute on Chronic? @ -Acute Uncomplicated (without systemic symptoms) or Complicated (systemic symptoms)? @ -Uncomplicated Side effects of treatment? @ -No Exacerbation, Progression, or Severe Exacerbation? @ -No Poses a threat to life or bodily function? How? (Chest pain, [place], [place], pneumonia, PE, COPD, DKA, ARF, appy, cholecystitis, CVA, Diverticulitis, Homicidal, Suicidal, threat to staff... and all critical care pts) @ -Not at this time - Lab Data Result diagrams: 06/05/24 23:10 06/05/24 23:10 Lab Results 06/05/24 06/05/24 06/05/24 Range/Units 23:10 23:10 23:10 WBC 13.2 H (3.8-10.6) k/uL RBC 4.70 (3.80-5.40) m/uL Hgb 12.1 (11.4-16.0) gm/dL Hct 38.5 (34.0-46.0) % MCV 82.1 (80.0-100.0) fL MCH 25.8 (25.0-35.0) pg MCHC 31.4 (31.0-37.0) g/dL RDW 14.9 (11.5-15.5) % Plt Count 323 (150-450) k/uL MPV 7.5 Neutrophils % 76 % Lymphocytes % 18 % Monocytes % 3 % Eosinophils % 2 % Basophils % 0 % Neutrophils # 10.1 H (1.3-7.7) k/uL Lymphocytes # 2.3 (1.0-4.8) k/uL Monocytes # 0.4 (0-1.0) k/uL Eosinophils # 0.3 (0-0.7) k/uL Basophils # 0.0 (0-0.2) k/uL Hypochromasia Slight Sodium 134 L (137-145) mmol/L Potassium 4.4 (3.5-5.1) mmol/L Chloride 107 (98-107) mmol/L Carbon Dioxide 19 L (22-30) mmol/L Anion Gap 8 mmol/L BUN 6 L (7-17) mg/dL Creatinine 0.57 (0.52-1.04) mg/dL Est GFR (CKD-EPI)AfAm >90 (>60 ml/min/1.73 sqM) Est GFR (CKD-EPI)NonAf >90 (>60 ml/min/1.73 sqM) Glucose 90 (74-99) mg/dL Plasma Lactic Acid Jj (0.7-2.0) mmol/L Calcium 9.0 (8.4-10.2) mg/dL Total Bilirubin 0.8 (0.2-1.3) mg/dL AST 33 (14-36) U/L ALT 14 (4-34) U/L Alkaline Phosphatase 74 (38-126) U/L Total Protein 7.6 (6.3-8.2) g/dL Albumin 4.5 (3.5-5.0) g/dL HCG, Quant 68212.4 mIU/mL Blood Type O Negative Blood Type Recheck O Neg Bld Type Recheck Status No Antibody Screen NEGATIVE 06/05/24 Range/Units 23:10 WBC (3.8-10.6) k/uL RBC (3.80-5.40) m/uL Hgb (11.4-16.0) gm/dL Hct (34.0-46.0) % MCV (80.0-100.0) fL MCH (25.0-35.0) pg MCHC (31.0-37.0) g/dL RDW (11.5-15.5) % Plt Count (150-450) k/uL MPV Neutrophils % % Lymphocytes % % Monocytes % % Eosinophils % % Basophils % % Neutrophils # (1.3-7.7) k/uL Lymphocytes # (1.0-4.8) k/uL Monocytes # (0-1.0) k/uL Eosinophils # (0-0.7) k/uL Basophils # (0-0.2) k/uL Hypochromasia Sodium (137-145) mmol/L Potassium (3.5-5.1) mmol/L Chloride (98-107) mmol/L Carbon Dioxide (22-30) mmol/L Anion Gap mmol/L BUN (7-17) mg/dL Creatinine (0.52-1.04) mg/dL Est GFR (CKD-EPI)AfAm (>60 ml/min/1.73 sqM) Est GFR (CKD-EPI)NonAf (>60 ml/min/1.73 sqM) Glucose (74-99) mg/dL Plasma Lactic Acid Jj 0.9 (0.7-2.0) mmol/L Calcium (8.4-10.2) mg/dL Total Bilirubin (0.2-1.3) mg/dL AST (14-36) U/L ALT (4-34) U/L Alkaline Phosphatase (38-126) U/L Total Protein (6.3-8.2) g/dL Albumin (3.5-5.0) g/dL HCG, Quant mIU/mL Blood Type Blood Type Recheck Bld Type Recheck Status Antibody Screen Disposition Clinical Impression: Threatened Disposition: HOME SELF-CARE Condition: Stable Instructions (If sedation given, give patient instructions): Threatened Miscarriage (ED) Additional Instructions: Follow-up in 2 days for repeat beta-hCG levels. Your hCG level was 24,932 today. Follow-up with [facility] in 1 week for repeat ultrasound. Please return to the Emergency Department if symptoms worsen or any other concerns. Is patient prescribed a controlled substance at d/c from ED?: No Referrals: None,Stated [Primary Care Provider] - 1-2 days Time of Disposition: 03:09
[2024-06-05 23:20] LABS: Basophils % (A) 0 %; Eosinophils # (A) 0.3 k/uL (0-0.7); Eosinophils % (A) 2 %; HCT 38.5 % (34.0-46.0); HGB 12.1 gm/dL (11.4-16.0); Hypochromasia Slight; Lymphocytes # (A) 2.3 k/uL (1.0-4.8); Lymphocytes % (A) 18 %; MCH 25.8 pg (25.0-35.0); MCHC 31.4 g/dL (31.0-37.0); MCV 82.1 fL (80.0-100.0); Mean Platelet Volume 7.5; Monocytes # (A) 0.4 k/uL (0-1.0); Monocytes % (A) 3 %; Neutrophils # (A) 10.1 k/uL (1.3-7.7); Neutrophils % (A) 76 %; Platelet Count 323 k/uL (150-450); RDW 14.9 % (11.5-15.5); WBC 13.2 k/uL (3.8-10.6)
[2024-06-05 23:37] LABS: ALT 14 U/L (4-34); AST 33 U/L (14-36); African American GFR (CKD) >90 (>60 ml/min/1.73 sqM); Albumin 4.5 g/dL (3.5-5.0); Alkaline Phosphatase 74 U/L (38-126); Anion Gap 8 mmol/L; Blood Urea Nitrogen 6 mg/dL (7-17); Carbon Dioxide 19 mmol/L (22-30); Chloride 107 mmol/L (98-107); Glucose 90 mg/dL (74-99); Non-African American GFR(CKD) >90 (>60 ml/min/1.73 sqM); Sodium 134 mmol/L (137-145); Total Bilirubin 0.8 mg/dL (0.2-1.3); Total Protein 7.6 g/dL (6.3-8.2)
[2024-06-05 23:41] LABS: Potassium 4.4 mmol/L (3.5-5.1)
[2024-06-06 00:24] LABS: HCG,Quantitative Serum 24932.4 mIU/mL
[2024-06-06] MEDS: ACETAMINOPHEN TAB 325 MG TAB PO STA (00:41)
[2024-06-06] MEDS: Rhogam IMMUNE GLOBULIN 1,500 UNIT/1 ML IM ONE (03:27)
[2024-06-06 03:40] VITALS: BP 125/77; PULSE 67; RESP 20
--- NOTE | 2024-06-06 03:47 | US ---
EXAM: US First Trimester , Transabdominal CLINICAL HISTORY: ITS.REASON US Reason: vaginal bleeding in TECHNIQUE: Real-time transabdominal obstetrical ultrasound of the maternal pelvis and a first trimester with image documentation. COMPARISON: Ultrasound on 06/01/2024 FINDINGS: Uterus: Measures 11.1 x 6.2 x 6.2 cm. No focal myometrial lesion. Endometrium measures 12.1 mm. No definite associated color Doppler flow. No intrauterine identified. Previously seen intrauterine gestational sac and pole no longer seen on this exam. Findings are compatible with missed . Right ovary: Not visualized due to overlying bowel gas. Left ovary: Measures 1.7 x 2.2 x 1.7 cm. Normal appearance. Normal color Doppler flow. Other: No free fluid. No adnexal mass. IMPRESSION: 1. No intrauterine identified. Previously seen intrauterine gestational sac and pole no longer seen on this exam. Findings are compatible with missed . 2. No definite retained products of conception.
== END 2024-06-06 03:38 | disposition home or self-care (01) ==
LOC: EC 22:32
DX: O20.0 Threatened abortion (principal); Z3A.10 10 weeks gestation of pregnancy; Z87.891 Personal history of nicotine dependence
CPT/HCPCS: 36415; 86900; 86901; 80053; 83605; 85025; 86850; 84702; 76801; 99284; 96372; J2790

== ENCOUNTER 2024-06-07 02:28 | Emergency (ER) | payer OTHER ==
--- NOTE | 2024-06-07 02:34 | ED ---
Recheck HPI - General Stated Complaint: Vaginal bleeding- 10 wks preg Time Seen by Provider: 06/07/24 02:30 Source: RN notes reviewed, old records reviewed Mode of arrival: ambulatory Limitations: no limitations - History of Present Illness Initial Comments: This is a 24-year-old female to the ER for evaluation patient presents today vaginal bleeding with known miscarriage. Patient is having persistent bleeding for the last 2 days, patient has 2 prior ER visits for same. This is her second , no real pain just significant bleeding MD Complaint: abnormal lab (Return for persistent vaginal bleeding) -: days(s) Returns Today for: other (Miscarriage) Symptoms Since Prior Visit: no new symptoms Context: planned re-check Associated Symptoms: none - Related Data Home Medications Medication Instructions Recorded Confirmed Vit No.179/Iron/Folic 1 each PO DAILY 07/21/23 08/13/23 [ Tablet] Previous Rx's Medication Instructions Recorded Ibuprofen [Motrin] 600 mg PO Q6H #60 tab 08/15/23 oxyCODONE HCL [OxyIR] 5 mg PO Q4HR PRN #12 tab 08/15/23 Allergies Allergy/AdvReac Type Severity Reaction Status Date / Time No Known Allergies Allergy Verified 06/07/24 02:41 Review of Systems ROS Statement: Those systems with pertinent positive or pertinent negative responses have been documented in the HPI. ROS Other: All systems not noted in ROS Statement are negative. Past Medical History Past Medical History: No Reported History Additional Past Medical History / Comment(s): Obstetric history: First was a primary low transverse . This is her second and she's had care with me since the first trimester. Blood type is O-, antibodies negative, rubella immune, RPR nonreactive, is B-, HIV nonreactive. History of Any Multi-Drug Resistant Organisms: None Reported Past Surgical History: Section Additional Past Surgical History / Comment(s): wisdom teeth Past Anesthesia/Blood Transfusion Reactions: No Reported Reaction Past Psychological History: Anxiety, Depression Smoking Status: Former smoker Past Alcohol Use History: None Reported Past Drug Use History: None Reported - Past Family History Mother Family Medical History: No Reported History Additional Family Medical History / Comment(s): family history of DM and heart disease Father History Unknown: Yes General Exam General appearance: alert, in no apparent distress Head exam: Present: atraumatic, normocephalic, normal inspection Eye exam: Present: normal appearance, PERRL, EOMI. Absent: scleral icterus, conjunctival injection, periorbital swelling ENT exam: Present: normal exam, mucous membranes moist Neck exam: Present: normal inspection. Absent: tenderness, meningismus, lymphadenopathy Respiratory exam: Present: normal lung sounds bilaterally. Absent: respiratory distress, wheezes, rales, rhonchi, stridor Cardiovascular Exam: Present: regular rate, normal rhythm, normal heart sounds. Absent: systolic murmur, diastolic murmur, rubs, gallop, clicks GI/Abdominal exam: Present: soft, normal bowel sounds. Absent: distended, tenderness, guarding, rebound, rigid Extremities exam: Present: normal inspection, full ROM, normal capillary refill. Absent: tenderness, pedal edema, joint swelling, calf tenderness Back exam: Present: normal inspection Neurological exam: Present: alert, oriented X3, CN II-XII intact Psychiatric exam: Present: normal affect, normal mood Skin exam: Present: warm, dry, intact, normal color. Absent: rash Course Vital Signs 06/07/24 06/07/24 02:29 05:00 Temperature 98.3 F Pulse Rate 101 H 63 Respiratory 17 17 Rate Blood Pressure 98/66 96/57 O2 Sat by Pulse 97 98 Oximetry - Reevaluation(s) Reevaluation #1: 06/07/24 06:09 Records reviewed Reevaluation #2: 06/07/24 06:10 Patient symptoms unchanged Reevaluation #3: 06/07/24 06:10 Patient informed of results questions answered Reevaluation #4: Was pt. sent in by a medical professional or institution (, PA, [employer], urgent care, hospital, or penitentiary...) When possible be specific @ -no Did you speak to anyone other than the patient for history (EMS, parent, family, police, friend...)? What history was obtained from this source @ -no Did you review nursing and triage notes (agree or disagree)? Why? @ -agree Are old charts reviewed (outside hosp., previous admission, EMS record, old EKG, old radiological studies, urgent care reports/EKG's, penitentiary records)? Report findings @ -yes Differential Diagnosis (chest pain, altered mental status, abdominal pain women, abdominal pain men, vaginal bleeding, weakness, fever, dyspnea, syncope, headache, dizziness, GI bleed, back pain, seizure, CVA, palpatations, mental health, musculoskeletal)? @ -prior EKG interpreted by me (3pts min.). @ -yes X-rays interpreted by me (1pt min.). @ -yes negative for acute disease CT interpreted by me (1pt min.). @ -no U/S interpreted by me (1pt. min.). @ -no What testing was considered but not performed or refused? (CT, X-rays, U/S, labs)? Why? @ -none What meds were considered but not given or refused? Why? @ -none Did you discuss the management of the patient with other professionals (leia serna i.e. , PA, [employer], lab, RT, psych nurse, social services, construction checker, teacher, commissioned security officer, nurse case management)? Give summary @ -no Was smoking cessation discussed for >3mins.? @ -no Was critical care preformed (if so, how long)? @ -no Were there social determinants of health that impacted care today? How? (Homelessness, low income, unemployed, alcoholism, drug addiction, transportation, low edu. Level, literacy, decrease access to med. care, [facility] [facility], rehab)? @ -none Was there de-escalation of care discussed even if they declined (Discuss DNR or withdrawal of care, Hospice)? DNR status @ -no What co-morbidities impacted this encounter? (DM, HTN, Smoking, COPD, CAD, Cancer, CVA, ARF, Chemo, Hep., AIDS, mental health diagnosis, sleep apnea, morbid obesity)? @ -none Was patient admitted / discharged? Hospital course, mention meds given and route, prescriptions, significant lab abnormalities, going to OR and other pertinent info. @ - Undiagnosed new problem with uncertain prognosis? @ -no Drug Therapy requiring intensive monitoring for toxicity (Heparin, Nitro, Insulin, Cardizem)? @ -no Were any procedures done? @ -no Diagnosis/symptom? @ - Acute, or Chronic, or Acute on Chronic? @ -Acute Uncomplicated (without systemic symptoms) or Complicated (systemic symptoms)? @ -Complicated Side effects of treatment? @ -no Exacerbation, Progression, or Severe Exacerbation? @ -exacerbation Poses a threat to life or bodily function? How? (Chest pain, [place], MT, pneumonia, PE, COPD, DKA, ARF, appy, cholecystitis, CVA, Diverticulitis, Homicidal, Suicidal, threat to staff... and all critical care pts) @ -yes Medical Decision Making - Medical Decision Making 24 female with known miscarriage patient has significant hemoglobin drop from 2 days ago to today 3 points, repeat here in the ER did drop 1 with 1 L of fluid. Patient can follow-up with OB tomorrow - Lab Data Result diagrams: 06/07/24 05:51 06/07/24 02:47 Lab Results 06/07/24 06/07/24 06/07/24 Range/Units 02:42 02:47 02:47 WBC 13.5 H (3.8-10.6) k/uL RBC 3.52 L (3.80-5.40) m/uL Hgb 9.2 L D (11.4-16.0) gm/dL Hct 29.0 L (34.0-46.0) % MCV 82.3 (80.0-100.0) fL MCH 26.0 (25.0-35.0) pg MCHC 31.6 (31.0-37.0) g/dL RDW 15.1 (11.5-15.5) % Plt Count 339 (150-450) k/uL MPV 7.5 Neutrophils % 77 % Lymphocytes % 19 % Monocytes % 3 % Eosinophils % 1 % Basophils % 0 % Neutrophils # 10.4 H (1.3-7.7) k/uL Lymphocytes # 2.5 (1.0-4.8) k/uL Monocytes # 0.4 (0-1.0) k/uL Eosinophils # 0.1 (0-0.7) k/uL Basophils # 0.0 (0-0.2) k/uL Hypochromasia Slight PT 11.4 (10.0-12.5) sec INR 1.0 (<1.2) APTT 21.3 L (22.0-30.0) sec Sodium (137-145) mmol/L Potassium (3.5-5.1) mmol/L Chloride (98-107) mmol/L Carbon Dioxide (22-30) mmol/L Anion Gap mmol/L BUN (7-17) mg/dL Creatinine (0.52-1.04) mg/dL Est GFR (CKD-EPI)AfAm (>60 ml/min/1.73 sqM) Est GFR (CKD-EPI)NonAf (>60 ml/min/1.73 sqM) Glucose (74-99) mg/dL Calcium (8.4-10.2) mg/dL Total Bilirubin (0.2-1.3) mg/dL AST (14-36) U/L ALT (4-34) U/L Alkaline Phosphatase (38-126) U/L Total Protein (6.3-8.2) g/dL Albumin (3.5-5.0) g/dL HCG, Quant mIU/mL Blood Type O Negative Blood Type Recheck O Neg Bld Type Recheck Status No Antibody Screen POSITIVE Antibody Identification Anti-D Direct Antiglob Test Negative Spec Expiration Date 06/10/2024 - 234106/07/24 06/07/24 Range/Units 02:47 05:51 WBC 11.4 H (3.8-10.6) k/uL RBC 3.15 L (3.80-5.40) m/uL Hgb 8.3 L (11.4-16.0) gm/dL Hct 25.7 L (34.0-46.0) % MCV 81.7 (80.0-100.0) fL MCH 26.3 (25.0-35.0) pg MCHC 32.1 (31.0-37.0) g/dL RDW 14.8 (11.5-15.5) % Plt Count 294 (150-450) k/uL MPV 7.4 Neutrophils % 75 % Lymphocytes % 19 % Monocytes % 4 % Eosinophils % 0 % Basophils % 0 % Neutrophils # 8.6 H (1.3-7.7) k/uL Lymphocytes # 2.2 (1.0-4.8) k/uL Monocytes # 0.5 (0-1.0) k/uL Eosinophils # 0.0 (0-0.7) k/uL Basophils # 0.0 (0-0.2) k/uL Hypochromasia Slight PT (10.0-12.5) sec INR (<1.2) APTT (22.0-30.0) sec Sodium 134 L (137-145) mmol/L Potassium 3.5 (3.5-5.1) mmol/L Chloride 106 (98-107) mmol/L Carbon Dioxide 22 (22-30) mmol/L Anion Gap 6 mmol/L BUN 8 (7-17) mg/dL Creatinine 0.75 (0.52-1.04) mg/dL Est GFR (CKD-EPI)AfAm >90 (>60 ml/min/1.73 sqM) Est GFR (CKD-EPI)NonAf >90 (>60 ml/min/1.73 sqM) Glucose 138 H (74-99) mg/dL Calcium 8.8 (8.4-10.2) mg/dL Total Bilirubin 0.3 (0.2-1.3) mg/dL AST 19 (14-36) U/L ALT 12 (4-34) U/L Alkaline Phosphatase 72 (38-126) U/L Total Protein 6.2 L (6.3-8.2) g/dL Albumin 3.7 (3.5-5.0) g/dL HCG, Quant 07157.9 mIU/mL Blood Type Blood Type Recheck Bld Type Recheck Status Antibody Screen Antibody Identification Direct Antiglob Test Spec Expiration Date Disposition Clinical Impression: Miscarriage Disposition: HOME SELF-CARE Condition: Fair Instructions (If sedation given, give patient instructions): Miscarriage (ED) Is patient prescribed a controlled substance at d/c from ED?: No Referrals: None,Stated [Primary Care Provider] - 1-2 days
[2024-06-07 02:42] VITALS: RESP 17; TEMP 98.3
[2024-06-07] MEDS: SODIUM CHLORIDE 0.9% 1,000 ML IV ONE (02:50)
[2024-06-07 02:56] LABS: Basophils % (A) 0 %; Eosinophils # (A) 0.1 k/uL (0-0.7); Eosinophils % (A) 1 %; Hypochromasia Slight; Lymphocytes # (A) 2.5 k/uL (1.0-4.8); Lymphocytes % (A) 19 %; MCHC 31.6 g/dL (31.0-37.0); MCV 82.3 fL (80.0-100.0); Mean Platelet Volume 7.5; Monocytes # (A) 0.4 k/uL (0-1.0); Monocytes % (A) 3 %; Neutrophils # (A) 10.4 k/uL (1.3-7.7); Neutrophils % (A) 77 %; Platelet Count 339 k/uL (150-450); RBC 3.52 m/uL (3.80-5.40); RDW 15.1 % (11.5-15.5); WBC 13.5 k/uL (3.8-10.6)
[2024-06-07 03:08] LABS: HGB 9.2 gm/dL (11.4-16.0)
[2024-06-07 03:12] LABS: ALT 12 U/L (4-34); AST 19 U/L (14-36); African American GFR (CKD) >90 (>60 ml/min/1.73 sqM); Albumin 3.7 g/dL (3.5-5.0); Alkaline Phosphatase 72 U/L (38-126); Anion Gap 6 mmol/L; Blood Urea Nitrogen 8 mg/dL (7-17); Calcium 8.8 mg/dL (8.4-10.2); Carbon Dioxide 22 mmol/L (22-30); Chloride 106 mmol/L (98-107); Glucose 138 mg/dL (74-99); Non-African American GFR(CKD) >90 (>60 ml/min/1.73 sqM); Potassium 3.5 mmol/L (3.5-5.1); Sodium 134 mmol/L (137-145); Total Bilirubin 0.3 mg/dL (0.2-1.3); Total Protein 6.2 g/dL (6.3-8.2)
[2024-06-07 03:13] LABS: Partial Thromboplastin Time 21.3 sec (22.0-30.0); Prothrombin Time 11.4 sec (10.0-12.5)
[2024-06-07 03:28] LABS: HCG,Quantitative Serum 11152.9 mIU/mL
[2024-06-07 05:58] LABS: Basophils % (A) 0 %; Eosinophils % (A) 0 %; HCT 25.7 % (34.0-46.0); HGB 8.3 gm/dL (11.4-16.0); Hypochromasia Slight; Lymphocytes # (A) 2.2 k/uL (1.0-4.8); Lymphocytes % (A) 19 %; MCH 26.3 pg (25.0-35.0); MCHC 32.1 g/dL (31.0-37.0); MCV 81.7 fL (80.0-100.0); Mean Platelet Volume 7.4; Monocytes # (A) 0.5 k/uL (0-1.0); Monocytes % (A) 4 %; Neutrophils # (A) 8.6 k/uL (1.3-7.7); Neutrophils % (A) 75 %; Platelet Count 294 k/uL (150-450); RBC 3.15 m/uL (3.80-5.40); RDW 14.8 % (11.5-15.5); WBC 11.4 k/uL (3.8-10.6)
[2024-06-07 06:10] VITALS: BP 103/63; PULSE 80
== END 2024-06-07 06:37 | disposition home or self-care (01) ==
LOC: EC 02:28
DX: O03.9 Complete or unspecified spontaneous abortion without complication (principal); Z87.891 Personal history of nicotine dependence; Z3A.10 10 weeks gestation of pregnancy
CPT/HCPCS: 36415; 80053; 84702; 85025; 85610; 85730; 86850; 86870; 86880; 86900; 86901; 96360; 99284